=== PATIENT | male | born 1990 | race Two or more races ===

== ENCOUNTER 2017-03-24 14:13 | Emergency (ER) | payer MEDICAID ==
[~2017-03-24] VITALS: Ht 170.2 cm; Wt 101.0 kg
[2017-03-24] MEDS ORDERED: KETOROLAC 60MG/2ML VIAL IM ONE (22:00)
[2017-03-24 23:30] VITALS: BP 131/86
== END 2017-03-24 23:41 | disposition home or self-care (01) ==
LOC: ER 14:13
DX: R07.89 Other chest pain (principal); F12.10 Cannabis abuse, uncomplicated; W17.89XA Other fall from one level to another, initial encounter; Y93.89 Activity, other specified; Y04.0XXA Assault by unarmed brawl or fight, initial encounter; Y99.8 Other external cause status; Y92.89 Other specified places as the place of occurrence of the external cause
CPT/HCPCS: 71111; 93005; 99284; J1885; Z7610